=== PATIENT | female | born 1950 | race Caucasian/White ===

== ENCOUNTER 2018-06-14 13:35 | Inpatient (IN) | payer BC, MEDICARE ==
[~2018-06-14] VITALS: Ht 167.6 cm; Wt 80.6 kg
[2018-06-14] VITALS (401 sets, daily range): BP systolic 136–173; BP diastolic 67–96; PULSE 63–82; TEMP 97–97.7; O2SAT 93–100
[2018-06-14] MEDS ORDERED: CARDIZEM CD 24240 MG PO (14:19)
[2018-06-14] MEDS ORDERED: HCTZ12.5TAB PO (14:20)
[2018-06-14] MEDS ORDERED: ADVIL200 MG PO (14:21)
[2018-06-14] MEDS ORDERED: PROAIR HFA0.09 MG/AC IH (14:21)
[2018-06-14] MEDS ORDERED: ICAPS TABLET1 EACH PO (14:30)
[2018-06-14] MEDS ORDERED: RT ADVAIR 228 DISKUS IH (14:31)
[2018-06-14 15:16] LABS: MUCOUS Present /lpf; PH 7 (5-8); SQUAMOUS EPITHELIAL 0-2 /hpf; URINE APPEARANCE Clear; URINE BACTERIA Rare /hpf; URINE BILIRUBIN Negative (NEGATIVE); URINE BLOOD Negative (NEGATIVE); URINE COLOR Straw; URINE GLUCOSE Negative (NEGATIVE); URINE KETONE Negative (NEGATIVE); URINE LEUKOCYTE ESTERASE Negative (NEGATIVE); URINE NITRATE Positive (NEGATIVE); URINE PROTEIN(semi-quant) Negative (NEGATIVE); URINE RBC 0-2 /hpf; URINE UROBILINOGEN Negative (NEGATIVE)
[2018-06-14 15:18] LABS: BASO # 0.1 (0.0-0.2); BASO % 1.5 % (0.0-2.0); EOS # 0.2 (0.0-0.7); EOS % 3.4 % (0-4.0); GRAN # 2.7 (1.4-6.5); GRAN % 57.4 % (42.2-75.2); HEMATOCRIT 41.6 % (37.0-47.0); HEMOGLOBIN 14.4 g/dl (12.5-16.0); LYMPH # 1.3 (1.2-3.4); MEAN CELL VOLUME 95 fl (80.0-100.0); MEAN CORPUSCULAR HEMOGLOBIN 33 pg (27.0-31.0); MEAN CORPUSCULAR HGB CONC 35 g/dl (33.0-37.0); MEAN PLATELET VOLUME 9.3 fl (7.4-10.4); MONO # 0.5 (0.1-0.6); MONO % 10.5 % (1.7-9.3); PLATELET COUNT 191 K/mm3 (130-400); RED BLOOD COUNT 4.37 M/mm3 (4.10-5.30); REDCELL DISTRIBUTION WIDTH-CV 13.1 % (11.5-14.5)
[2018-06-14 15:21] LABS: ALBUMIN 4.5 gm/dL (3.5-5.0); BILIRUBIN,TOTAL 0.7 mg/dL (0.0-1.0); CALCIUM 10.4 mg/dL (8.4-10.2); CREATININE, serum 0.89 mg/dL (0.52-1.25); MAGNESIUM 2.1 mg/dL (1.6-2.3); POTASSIUM 3.7 mmol/L (3.4-5.0); TOTAL PROTEIN 7.4 gm/dL (6.4-8.2)
[2018-06-14 15:24] LABS: PROTHROMBIN TIME 11.4 SECONDS (9.7-12.8)
[2018-06-14 15:26] LABS: PARTIAL THROMBOPLASTIN TIME 36.6 SECONDS (26.0-37.0)
[2018-06-14 15:29] LABS: COLLECTION METHOD CLEAN CATCH
[2018-06-14 15:37] LABS: TROPONIN-I 0.063 ng/mL (0.000-0.034)
[2018-06-15] VITALS (523 sets, daily range): BP systolic 111–157; BP diastolic 51–97; PULSE 54–72; TEMP 97–98; O2SAT 83–100
[2018-06-16] VITALS (693 sets, daily range): BP systolic 111–161; BP diastolic 54–86; PULSE 51–73; TEMP 97–98.1; O2SAT 74–100
[2018-06-16 05:46] LABS: HEMATOCRIT 40.8 % (37.0-47.0); MEAN CELL VOLUME 95 fl (80.0-100.0); MEAN CORPUSCULAR HEMOGLOBIN 33 pg (27.0-31.0); MEAN CORPUSCULAR HGB CONC 34 g/dl (33.0-37.0); MEAN PLATELET VOLUME 9.6 fl (7.4-10.4); PLATELET COUNT 188 K/mm3 (130-400); RED BLOOD COUNT 4.29 M/mm3 (4.10-5.30); REDCELL DISTRIBUTION WIDTH-CV 13.1 % (11.5-14.5)
[2018-06-16 06:02] LABS: CALCIUM 10.1 mg/dL (8.4-10.2); CREATININE, serum 0.87 mg/dL (0.52-1.25); POTASSIUM 3.9 mmol/L (3.4-5.0)
[2018-06-17] VITALS (458 sets, daily range): BP systolic 129–151; BP diastolic 72–81; PULSE 56–73; TEMP 97.3–97.7; O2SAT 95–100
[2018-06-17] MEDS ORDERED: NITROSTAT0.4 MG/TAB SL (09:45)
[2018-06-17] MEDS ORDERED: BRILINTA90 MG PO (09:45)
[2018-06-17] MEDS ORDERED: LIPITOR 80MG80 MG PO (09:45)
[2018-06-17] MEDS ORDERED: LOPRESSOR 225 MG/TAB PO (09:45)
[2018-06-17] MEDS ORDERED: ASPIRIN E.C. 8181 MG PO (09:46)
[2018-06-17] MEDS ORDERED: TYLENOL 325MG325 MG PO (09:46)
== END 2018-06-17 12:07 | disposition home or self-care (01) | DRG 247 ==
LOC: ICU 13:35
PROVIDERS: Internal Medicine; Internal Medicine Cardiovascular Disease
PROC: B2111ZZ Fluoroscopy of Multiple Coronary Arteries using Low Osmolar Contrast (ICD-10-PCS; 2018-06-15)
PROC: 4A023N7 Measurement of Cardiac Sampling and Pressure, Left Heart, Percutaneous Approach (ICD-10-PCS; 2018-06-15)
PROC: 027034Z Dilation of Coronary Artery, One Artery with Drug-eluting Intraluminal Device, Percutaneous Approach (ICD-10-PCS; principal; 2018-06-16)
PROC: B2111ZZ Fluoroscopy of Multiple Coronary Arteries using Low Osmolar Contrast (ICD-10-PCS; 2018-06-16)
DX: I21.4 Non-ST elevation (NSTEMI) myocardial infarction (principal); I25.10 Atherosclerotic heart disease of native coronary artery without angina pectoris; I10 Essential (primary) hypertension; Z87.891 Personal history of nicotine dependence; E78.5 Hyperlipidemia, unspecified; J45.909 Unspecified asthma, uncomplicated
CPT/HCPCS: 99223-AI; 99232-AI; 99239; C1725; C1769; C1874; C1887; C9600; J1644; J2250; J3010; J7030; Q9967

== ENCOUNTER 2018-08-25 14:45 | Outpatient (RCR) | payer BC, MEDICARE ==
[~2018-08-25 14:45] MED LIST: ADVIL200 MG PO; ASPIRIN E.C. 8181 MG PO; BRILINTA90 MG PO; CARDIZEM CD 24240 MG PO; HCTZ12.5TAB PO; ICAPS TABLET1 EACH PO; LIPITOR 80MG80 MG PO; LOPRESSOR 225 MG/TAB PO; NITROSTAT0.4 MG/TAB SL; PROAIR HFA0.09 MG/AC IH; RT ADVAIR 228 DISKUS IH; TYLENOL 325MG325 MG PO
== END 2018-08-27 14:59 | disposition home or self-care (01) ==
LOC: COL.CR 14:45
DX: Z48.812 Encounter for surgical aftercare following surgery on the circulatory system (principal); I21.4 Non-ST elevation (NSTEMI) myocardial infarction; Z95.5 Presence of coronary angioplasty implant and graft

== ENCOUNTER 2020-04-04 14:00 | Outpatient (RCR) | payer BC | END 2020-07-03 | disposition still patient (30) | LOC: MKS.ESL.PT | DX: Z00.00 Encounter for general adult medical examination without abnormal findings (principal); M25.611 Stiffness of right shoulder, not elsewhere classified; M25.612 Stiffness of left shoulder, not elsewhere classified ==